=== PATIENT | male | born 2000 | race African-American/Black ===

== ENCOUNTER 2020-10-21 20:20 | Emergency (ER) | payer SELFPAY ==
[~2020-10-21] VITALS: Ht 190.5 cm; Wt 109.2 kg
[2020-10-21 20:21] VITALS: BP 147/71
[2020-10-23] MEDS ORDERED: CLEO300C2 PO (22:02)
== END 2020-10-22 00:30 | disposition left against medical advice (07) ==
LOC: M ED 20:20
DX: Z53.29 Procedure and treatment not carried out because of patient's decision for other reasons (principal)

== ENCOUNTER 2020-10-22 15:46 | Emergency (ER) | payer SELFPAY ==
[~2020-10-22] VITALS: Ht 190.5 cm; Wt 109.1 kg
[2020-10-22 15:46] VITALS: BP 137/62
[2020-10-23] MEDS ORDERED: CLEO300C2 PO (22:02)
== END 2020-10-22 21:15 | disposition left against medical advice (07) ==
LOC: M ED 15:46
DX: Z53.21 Procedure and treatment not carried out due to patient leaving prior to being seen by health care provider (principal)

== ENCOUNTER 2020-10-23 18:47 | Emergency (ER) | payer SELFPAY ==
[~2020-10-23] VITALS: Ht 190.5 cm; Wt 110.1 kg
[2020-10-23 18:57] VITALS: BP 140/66
[2020-10-23] MEDS ORDERED: diphenhydrAMINE 50MG CAP PO ONE (21:25)
[2020-10-23] MEDS ORDERED: CLINDAMYCIN 150MG CAPSULE PO ONE (21:25)
[2020-10-23] MEDS ORDERED: CLEO300C2 PO (22:02)
[2020-10-23 22:04] LABS: BASO # 0.1 10^3/uL (0.0-0.2); BASO % 0.7 % (0.0-1.0); EOS # 0.2 10^3/uL (0.0-0.5); EOS % 2.3 % (0.0-3.0); HEMATOCRIT 48.1 % (42.0-52.0); LYMPH # 2.5 10^3/uL (1.5-5.0); LYMPH % 34.8 % (24.0-44.0); MEAN CORPUSCULAR HEMOGLOBIN 30.9 pg (27.0-33.0); MEAN CORPUSCULAR HGB CONC 35.3 g/dl (32.0-36.5); MEAN CORPUSCULAR VOLUME 87.3 fl (80.0-96.0); MONO # 0.6 10^3/uL (0.0-0.8); MONO % 7.6 % (2.0-8.0); NEUTROPHILS # 3.9 10^3/uL (1.5-8.5); NEUTROPHILS % 54.5 % (36.0-66.0); PLATELET COUNT, AUTOMATED 182 10^3/uL (150-450); RED BLOOD COUNT 5.51 10^6/uL (4.30-6.10); WHITE BLOOD COUNT 7.2 10^3/uL (4.0-10.0)
[2020-10-23 22:30] LABS: ERYTHROCYTE SEDIMENTATION RATE 2 mm/hr (0-15)
== END 2020-10-23 22:28 | disposition home or self-care (01) ==
LOC: M ED 18:47
DX: L08.0 Pyoderma (principal); F17.200 Nicotine dependence, unspecified, uncomplicated